=== PATIENT | male | born 1990 | race Caucasian/White ===

== ENCOUNTER 2017-05-02 18:31 | Emergency (ER) | payer BC ==
[~2017-05-02] VITALS: Ht 177.8 cm; Wt 62.6 kg
[2017-05-02 18:56] VITALS: BP 122/63; PULSE 76; RESP 20; TEMP 98.4; O2SAT 98
[2017-05-02] MEDS ORDERED: DIPHTH/TETANUS/ACEL PERTUSSIS (BOOSTER) 0.5 ML VIAL/PFS IM ONE (21:00)
[2017-05-02] MEDS ORDERED: IBUPROFEN 600 MG TAB PO ONE (21:00)
[2017-05-02] MEDS ORDERED: CEPH-460 PO (21:55)
--- NOTE | 2017-05-02 21:55 | PD ---
HPI Chief Complaint: Skin Problem Time Seen by Provider: 20:42 Travel History International Travel<30 days: No Contact w/Intl Traveler<30days: No Traveled to known affect area: No History of Present Illness HPI 27-year-old male complains of pain in the left foot. He was fishing today and dropped the patient on the foot which evidently cut through the foot and then abraded the superior aspect of the foot. Initially the pain was mild however over the ensuing hours he became unable to ambulate. Timing constant. Onset sudden. Pain is gradually worsening. Patient does not recall last tetanus shot. PFSH Past Medical History Hx Anticoagulant Therapy: No Asthma: Yes (seasonal asthma-childhood) Autoimmune Disease: No Blood Disorders: No Cardiovascular Problems: No Chemotherapy: No Cerebrovascular Accident: No Diabetes: No Diminished Hearing: No Gastrointestinal Disorders: Yes Genitourinary: No Musculoskeletal: Yes (was having leg cramps, resolved after hydration) Neurologic: No Psychiatric: No Respiratory: No Immunizations Current: Yes Tetanus Vaccination: < 5 Years Influenza Vaccination: No ?: Not Past Surgical History Abdominal Surgery: Yes (hernia (diaphragm) repair at 2 days of age) Cardiac Surgery: No Ear Surgery: No Endocrine Surgery: No Eye Surgery: No Genitourinary Surgery: No Gynecologic Surgery: No Neurologic Surgery: No Oral Surgery: No Thoracic Surgery: No Other Surgery: Yes (2nd hernia repair as adult, right inguinal) Social History Alcohol Use: No Tobacco Use: No Substance Use: No Allergies-Medications (Allergen,Severity, Reaction): Coded Allergies: Sulfa (Sulfonamide Antibiotics) (Unverified Allergy, Severe, WIDESPREAD RED RASH, 12/28/16) Reported Meds & Prescriptions Reported Meds & Active Scripts Active Keflex (Cephalexin) 500 Mg Capsule 500 Mg PO Q8H 7 Days Review of Systems Except as stated in HPI: all other systems reviewed are Neg General / Constitutional: No: Fever Physical Exam Narrative GENERAL: 27-year-old male well-nourished well-developed no acute distress SKIN: Warm and dry. MUSCULOSKELETAL: Extremities without clubbing, cyanosis, or edema. No obvious deformities. Trace abrasion overlying the right foot. Adjacent tenderness noted about 2 cm of ecchymosis present. 2 posterior cells plus bilaterally. NEUROLOGICAL: Awake and alert. No obvious cranial nerve deficits. Motor grossly within normal limits. Five out of 5 muscle strength in the arms and legs. Normal speech. PSYCHIATRIC: Appropriate mood and affect; insight and judgment normal. Data Data Last Documented VS Vital Signs Date Time Temp Pulse Resp B/P (MAP) Pulse Ox O2 Delivery O2 Flow Rate FiO2 05/02/17 18:56 98.4 76 20 122/63 (82) 98 Orders Orders Foot, Complete ([id number]) (05/02/17 20:53) Ice/Cold Pack (05/02/17 20:53) Splint Or Brace Apply/Monitor (05/02/17 20:53) Ibuprofen (Motrin) (05/02/17 21:00) [id number] (Booster) Inj (Boostrix (05/02/17 21:00) Ed Discharge Order (05/02/17 21:58) Shoe Cast (05/02/17 ) MDM Medical Decision Making Medical Screen Exam Complete: Yes Emergency Medical Condition: Yes Medical Record Reviewed: Yes Differential Diagnosis fracture, contusion, abrasion, cellulitis Narrative Course Plain films unremarkable. The patient received tetanus. Daily wound cleansing discussed. Antibiotics as below. Diagnosis Primary Impression: Contusion of foot Qualified Codes: S90.31XA - Contusion of right foot, initial encounter Additional Impression: Abrasion Med/Other Pt SpecificInfo: Prescription(s) given Scripts Cephalexin (Keflex) 500 Mg Capsule 500 MG PO Q8H for Infection for 7 Days, #21 CAP 0 Refills Prov: Roberto Matos MD 05/02/17 Disposition: 01 DISCHARGE HOME Condition: Stable Roberto Matos MD May 02, 2017 21:55
--- NOTE | 2017-05-02 21:56 | RADRPT ---
EXAM DATE/TIME: 05/02/2017 21:03 [facility] COMPARISON: No previous studies available for comparison. INDICATIONS : Patient dropped a fish on the top of his left foot, the spine of the fish punctured the top of his 1s t metatarsal. MEDICAL HISTORY : None. SURGICAL HISTORY : None. ENCOUNTER: Initial ACUITY: 1 day PAIN SCORE: 4/10 LOCATION: Left foot. FINDINGS: Three view examination of the left foot demonstrates no soft tissue swelling, dislocation, or fractur e. The tarsal bones appear intact. The interphalangeal and metatarsophalangeal joints are intact. The calcaneus is intact. Bony mineralization is normal. CONCLUSION: The osseous structures of the foot are intact. Felix Boyle MD on May 02, 2017 at 21:54 Board Certified Radiologist. This report was verified electronically.
== END 2017-05-02 22:17 | disposition home or self-care (01) ==
LOC: PHED 18:31 → PHEFT 22:17
DX: S90.31XA Contusion of right foot, initial encounter (principal); W20.8XXA Other cause of strike by thrown, projected or falling object, initial encounter; Y93.89 Activity, other specified; Y92.89 Other specified places as the place of occurrence of the external cause
CPT/HCPCS: 73630; 90471; 90715; 99283; L3260